=== PATIENT | female | born 1950 | race American Indian/Alaskan Native ===

== ENCOUNTER 2017-05-19 18:38 | Inpatient (IN) | payer OTHER ==
[~2017-05-19] VITALS: Ht 175.3 cm; Wt 160.6 kg
--- NOTE | ~2017-05-19 | H ---
[facility] [place] [address] HISTORY AND PHYSICAL Name: RENATE REED Room #: 313-P ADM IN M.R.#: [id number] Admission: 05/19/17 Attend Phys: Lena Luke Discharge: Date of : 48 Report #: [id number] THIS REPORT FOR: //name// CC: Lena Hollis DATE OF SERVICE: 05/19/2017 ATTENDING PHYSICIAN: Lena Luke MD. PRIMARY CARE PHYSICIAN: Unknown. CHIEF COMPLAINT: Altered mental status. HISTORY OF PRESENT ILLNESS: The patient is a 66-year-old female who [facility] by [facility] daughter because she has not been acting like herself lately. The daughter told the ER that the patient's baseline is normally talkative and spunky, but lately she has been lethargic and she is not always making sense when she talks. Apparently, she has had a fairly recent stroke and had been at for this. She was then at rehab and actually had a fall on 05/16, this was a witnessed fall from standing and she did not have any injury from it, but she was taken back to and admitted and since then it looks like she has been confused. It was not clear if she had hit her head. They stated she had not lost any consciousness. Since this fall, she has been unable to walk and there was mention in the records that she has been agitated and restrained with a CO at one point. She does have a history of hepatic encephalopathy and end-stage liver disease. It was mentioned in the records that it was recommended by her shuttle filler there that palliative care or hospice should be involved. The daughter apparently had declined this stating her mother wants to live, the patient although was telling the staff that she is okay with that. The patient was discharged from today and was supposed to go back to [facility] for further rehab, but the daughter picked her up from the hospital and drove her straight here and did not want her to go back into rehab stating she was still not at her baseline. The daughter is not present at this time, but extensive records from were reviewed. As far as her stroke, it looks like it was a small right thalamic parenchymal hemorrhage. It is not clear if this left her with any residual problems. She also has chronic blood loss anemia from GI bleeding. She had an EGD done in March which did not show any varices, but there was fresh and old blood in the stomach and this was from oozing portal hypertensive gastropathy. Her hemoglobin was 7.7 as of 05/15. According to her medication list, she has been on a PPI. She has chronic kidney disease stage IV and has not been a dialysis candidate presumably because of her liver problems. Her baseline creatinine has been 3.5-4. [address] [address] HISTORY AND PHYSICAL Name: RENATE REED Room #: 313-P [facility] IN M.R.#: [id number] Admission: 05/19/17 Attend Phys: Lena Luke Discharge: Date of : 48 Report #: [id number] The patient is not in any distress at this time. She is denying any pain. She is confused. She thought she was at and she stated the year was "1950," this is actually her birthday. When asked the month and the current president, she also stated the same thing 1950. She could not perform simple addition. She remains alert. PAST MEDICAL HISTORY: Recent CVA, hepatic encephalopathy, panniculitis, arthritis, chronic blood loss anemia, chronic diastolic heart failure, end-stage liver disease, JERNIGAN versus cryptogenic, diabetes, morbid obesity, atrial fibrillation, uterine cancer, hypertension, obesity hypoventilation syndrome, chronic kidney disease stage IV, portal hypotensive gastropathy. PAST SURGICAL HISTORY: Cataract repair, tonsillectomy, bilateral tubal ligation. ALLERGIES: No known drug allergies. HOME MEDICATIONS: Rifaximin 550 mg p.o. b.i.d., midodrine 5 mg p.o. t.i.d., iron 325 mg p.o. b.i.d., tramadol 50 mg q. 6h. p.r.n., lactulose 30 mL t.i.d., potassium 40 mg p.o. b.i.d., zinc 220 mg p.o. daily, Lasix 80 mg p.o. b.i.d., metolazone 2.5 mg p.o. daily, simethicone 80 mg q. 6 hours, Colace 100 mg daily, Carafate 1 mg before meals and at bedtime, Protonix 40 mg p.o. b.i.d., NovoLog insulin 16 units with meals and Levemir 5 units at bedtime and Nystatin powder b.i.d. and vitamin C daily, vitamin D daily, multivitamin daily, fish oil 2000 mg daily and octreotide 100 mcg subQ t.i.d. SOCIAL HISTORY: Per records, the patient is an ex-smoker, having smoked 1 pack of cigarettes per day for about 30 years. She quit in 2010. She does have a history of alcohol abuse and has been sober for 27 years. There was history of drug use, but she has been sober for 27 years. FAMILY HISTORY: Significant for cancer, diabetes, and heart disease. REVIEW OF SYSTEMS: Unable to obtain by patient because of altered mental status, but prior records from were reviewed. PHYSICAL EXAMINATION: GENERAL: The patient is an alert, but confused female, in no acute distress. VITAL SIGNS: Temperature is 36.7, heart rate 77, respirations 20, blood pressure is 120/70, oxygen 98% on room air. HEENT: PERRLA. Sclerae are nonicteric. Oral mucosa is pink and moist. NECK: Supple, no JVD noted. CARDIOVASCULAR: Heart rate is irregular, but no murmurs, rubs or gallops. RESPIRATORY: Breath sounds are clear bilateral upper lobes. She is diminished in both bases. Breathing is nonlabored. [facility] [address] [place] [address] HISTORY AND PHYSICAL Name: RENATE REED Room #: 313-P [facility] IN M.R.#: [id number] Admission: 05/19/17 Attend Phys: Lena Luke Discharge: Date of : 48 Report #: [id number] ABDOMEN: Morbidly obese, but soft, nontender with hypoactive bowel sounds. VASCULAR: 2+ bilateral lower extremity edema. Pedal pulses are 2+. NEUROLOGIC: The patient is alert, but confused as above. She is only oriented to self. She is able to state her birthday, but she became very repetitive and just kept repeating her date as her response to other questions. She will follow some simple commands. She was unable to lift her legs up off the bed, but she is able to wiggle her toes and she was moving her arms above her head to command without any weakness noted. PSYCHIATRIC: She has a very flat affect, but is cooperative. SKIN: Intact. There are no sores, but she does have multiple areas of ecchymosis in her bilateral upper extremities. LABORATORY DATA: WBC 4.8, hemoglobin 8.5, platelets 72. INR 1.6. Sodium 139, potassium 3.3, BUN 69, creatinine 4.0 and glucose 142. AST 51, ALT 25, alkaline phosphatase 158. Troponins negative. Ammonia level 29. BNP 5896. UA showed trace leukocyte esterase, but no wbcs. EKG showed sinus rhythm with some PVCs. CT of the head showed diffuse moderate atrophy and there is mild patchy deep white matter changes suggesting chronic encephalomalacia, there is no acute hemorrhage or infarction and chest x-ray showed moderate right and moderate greater on the left increased lower lobe density, consider atelectasis versus pneumonitis. ASSESSMENT AND PLAN: 1. Altered mental status. It is not clear exactly what the patient's baseline is. Her CT did not show any acute findings. The daughter is not available for questioning at this time. Her ammonia level is normal. We will continue to monitor neuro status and clarify her baseline once family is here. 2. Recent cerebrovascular accident. This could be contributing to her altered mental status. 3. End-stage liver disease due to liver cirrhosis. She does have sequelae of previous hepatic encephalopathy and thrombocytopenia and slight coagulopathy. Apparently, palliative care and/or hospice had been recommended in the past, but the family had refused this. Continue home medications. We will have Dr. Ring with palliative care consulted. 4. Bilateral lower lobe atelectasis versus pneumonitis. She really does not have any signs of infection. She does not have a cough. Her white blood cell count is normal and she is afebrile. Add breathing treatments p.r.n. 5. Chronic kidney disease stage IV-V. The patient has not been on dialysis. Her potassium level is stable. We will follow labs closely. 6. Chronic blood loss anemia with GI bleed secondary to portal gastropathy. She did have an EGD done in March at . Continue with PPI b.i.d. and Carafate and octreotide. 7. Diabetes type 2. Blood sugar is stable. Continue home medications and add Accu-Chek and sliding scale insulin. 8. Hypertension. Blood pressure is stable, continue home medications. 9. Morbid obesity. [facility] [address] [place] [address] HISTORY AND PHYSICAL Name: RENATE REED Room #: 313-P [facility] IN .R.#: [id number] Admission: 05/19/17 Attend Phys: Lena Luke Discharge: Date of : 48 Report #: [id number] 10. Generalized weakness and falls. We will have PT and OT evaluate and see if she is again a candidate for rehab if the family continues to refuse hospice. 11. Atrial fibrillation. She is not on any anticoagulation presumably because of her falls. She is currently rate controlled. Continue to monitor on telemetry and continue home medications. 12. Deep venous thrombosis prophylaxis, place sequential compression devices. We will continue to follow the patient closely throughout the hospitalization and make changes based on clinical status. <ELECTRONICALLY SIGNED> By: CYNTHIA Parker 05/20/171956 0 2 CYNTHIA Parker /nt
--- NOTE | ~2017-05-19 | HC ---
[facility] [place] [address] CONSULTATION Name: RENATE REED Room #: 436-P [facility] IN M.R.#: [id number] Admission: 05/19/17 Attend Phys: Pineda Easley MD Discharge: 05/26/17 Date of : 48 Report #: [id number] THIS REPORT FOR: //name// CC: Pineda Hollis DATE OF SERVICE: 05/25/2017 HISTORY OF PRESENT ILLNESS: The patient is a 66-year-old female with history of end-stage liver disease who was cared for at [facility] She was noted to have possible hepatorenal syndrome. There was consideration for pursuing hospice, although the family was apparently not in favor of this. Upon discharge from , the patient was actually brought in to [facility]. She was noted to have acute mental status changes. She was thought to have toxic encephalopathy consistent with hepatic encephalopathy. She was followed closely by Nephrology. She was noted to have anasarca. Prognosis per the Hr Recruiter was noted to be poor. We are seeing her in Rehabilitation Medicine consultation. PAST MEDICAL HISTORY: Includes history of alcohol abuse, apparently clean 27 years per history. She has morbid obesity, cirrhosis. She has had a prior stroke with some residual left-sided weakness. This is noted to be a right thalamic parenchymal hemorrhage. She has carpal tunnel syndrome involving the right upper extremity. ALLERGIES: No known drug allergies. MEDICATIONS: Please see the full medication listing. FAMILY HISTORY: Noncontributory. HABITS: Prior cigarette abuse for 30 years, quit greater than a year ago. SOCIAL HISTORY: Apparently long-term care resident at [facility]. Other options are being considered at this point. REVIEW OF SYSTEMS: Did not offer any current complaints of chest pain, shortness of breath or abdominal discomfort. She does wear a wrist splint for her carpal tunnel syndrome. PHYSICAL EXAMINATION: GENERAL: A morbidly obese 66-year-old female in no obvious distress. VITAL SIGNS: Last recorded temperature is 97.7, pulse 67, respirations 18, blood pressure 131/59. NEUROLOGIC: The patient is alert. Facies are symmetric. She has functional range of motion of the upper extremities. She has the wrist splint in place. [address] [address] CONSULTATION Name: RENATE REED Room #: [facility].#: [id number] Admission: 05/19/17 Attend Phys: Pineda Easley MD Discharge: 05/26/17 Date of : 48 Report #: [id number] Strength is probably a grade 3+/5. In the lower extremities, there is no focal calf swelling. Functional range of motion with strength grade 3+/5 to 3/5. She has a very large abdominal pannus so it is difficult to test her proximal lower extremities. She has been max assist of 2 for sit to stand. Max assist to roll in bed. Dependent for toileting. ASSESSMENT: A 66-year-old female with the following problem list: 1. Acute mental status changes secondary to hepatic encephalopathy, which appears to be improved. 2. End-stage liver disease. 3. Acute renal insufficiency. 4. Anasarca. 5. Chronic kidney disease with possible hepatorenal syndrome. 6. Diabetes mellitus type 2. PLAN: The patient is at a low functional level. She does not meet criteria for an acute in-hospital 5 [facility] rehabilitation stay. We would agree with snf facility options as you were currently doing. By: [id number] Joselo Solorzano MD /[facility]
--- NOTE | ~2017-05-19 | HC ---
[facility] [place] [address] CONSULTATION Name: RENATE REED Room #: 313-P ADM IN M.R.#: [id number] Admission: 05/19/17 Attend Phys: Pineda Easley MD Discharge: Date of : 48 Report #: [id number] THIS REPORT FOR: //name// CC: Lena Hollis DATE OF SERVICE: 05/21/2017 REASON FOR CONSULTATION: Acute kidney injury. REASON FOR PRESENTATION: The patient's daughter brought her to the hospital because of mental status issues. HISTORY OF PRESENT ILLNESS: This patient is a 66-year-old with past medical history of cirrhosis. She was actually driven from [facility] to [place] after the discharge because family thought that she is not stable enough to go home. I have personally reviewed all of the medical records from [facility]. She also had a previous hospitalization at [facility]. She was admitted to [facility] in the early part of May after a fall. She has an acute kidney injury with her creatinine going up all the way to 3.6. She was evaluated by the kidney team there. Back in March, she had another hospitalization at the [facility] and I was told that she has an element of hepatorenal syndrome due to her end-stage renal disease. Most recent creatinine from [facility] revealed that her creatinine has hovered around anywhere 3.5-3.6. She was supposed to follow up with her shark biologist in . After stabilizing her medical condition, she was discharged home and the patient and the family were advised to pursue hospice and palliative care. However, the daughter did not think that her mom is back to baseline and brought to the emergency room. She was admitted for further evaluation and management. Creatinine on presentation was 4 and is still 4. Her UA was completely unremarkable other than from trace leukocyte esterase. She is way fluid overloaded and has some acute mental status issues. She has an elevated AST. She also has an elevated total bilirubin with a very low albumin of 2.4 and high TSH. I was consulted to manage her acute kidney injury on top of chronic kidney disease. PAST MEDICAL HISTORY: 1. End-stage liver disease. 2. Acute kidney injury. 3. Chronic kidney disease. 4. Remote history of stroke. 5. Gastrointestinal bleeding. 6. Hypertensive gastropathy. 7. Encephalopathy due to end-stage liver disease. 8. Anemia. 9. Panniculitis. [facility] [address] [place] [address] CONSULTATION Name: RENATE REED Room #: 313-P [facility] IN [facility].#: [id number] Admission: 05/19/17 Attend Phys: Pineda Easley MD Discharge: Date of : 48 Report #: [id number] 10. Diabetes mellitus. 11. AFib. 12. Uterine cancer. 13. Hypertension. 14. Morbid obesity. PAST SURGICAL HISTORY: 1. Tonsillectomy. 2. Tubal ligation. MEDICATIONS: 1. Midodrine. 2. Lactulose. 3. Lasix. 4. Metolazone. 5. Rifaximin. 6. Carafate. SOCIAL HISTORY: She is an exsmoker. Sober from alcohol for the last 27 years. No drug abuse. FAMILY HISTORY: Significant for diabetes mellitus and heart disease. REVIEW OF SYSTEMS: Unobtainable given the patient's mental status. PHYSICAL EXAMINATION: GENERAL: She is sleepy, lethargic. VITAL SIGNS: Blood pressure is 128/54. Temperature 36.8. HEAD AND NECK: Jaundiced. CHEST: Decreased air entry bilaterally. CARDIOVASCULAR: No rub detected. ABDOMEN: Soft, distended with ascites. LOWER EXTREMITIES: Massive edema. LABORATORY VALUES: Reviewed. Her laboratory values from here revealed a BUN of 67 and a creatinine of 4. Hemoglobin 7.3. ASSESSMENT, IMPRESSION AND PLAN: 1. Acute kidney injury. 2. Chronic kidney disease. 3. End-stage liver disease. 4. Anemia. 5. Massive edema and fluid overload. 6. Diabetes mellitus. Unfortunately, this is a very fragile situation and there is nothing that we [address] [address] CONSULTATION Name: RENATE REED Room #: 313-P [facility] IN .R.#: [id number] Admission: 05/19/17 Attend Phys: Pineda Easley MD Discharge: Date of : 48 Report #: [id number] could do for her chronic kidney disease. I have explained to the primary team that this patient should be transferred back to the facility to further manage her acute kidney injury and chronic kidney disease. From the renal perspective, I would keep her on the midodrine, octreotide, Lasix for now. I will stop the metolazone. Continue to address her liver issues including treatment for hepatic encephalopathy with the appropriate medications including rifaximin and lactulose. Watch electrolytes. Avoid nephrotoxins. Strict input and output. This is in all likelihood a hepatorenal syndrome, which is not treatable. The only solution for that is ____ measures to bridge her to liver transplant status, which I do not see happening given her overall conditions and comorbid issues. With all of the above-mentioned, I think it is very appropriate to consider palliative and hospice care for this patient as we are getting to the point where we cannot offer her much help. <ELECTRONICALLY SIGNED> By: Ismael Gomez MD 05/23/1725 0733 Ismael Gomez MD /nt
--- NOTE | ~2017-05-19 | EKG ---
[facility] [employer] [place] [address] ELECTROCARDIOGRAM REPORT Name: RENATE REED Room #: 313-P ADM IN M.R.#: [id number] Admission: 05/19/17 Attend Phys: Lena Luke Discharge: Date of : 48 Report #: [id number] THIS REPORT FOR: //name// [facility] ED Test Date: 2017-05-19 Test Time: 19:21:12 Pat Name: RENATE REED Department: Room: [facility] Gender: F Bee Robber: [place] : 1950 Requested By: Lida Crowe Order Number: [id number] MD: Jose Maria Morrissey Measurements Intervals Warren Rate: 74 P: 5 NC: 68 QRS: -44 QRSD: 121 T: 25 QT: 504 QTc: 560 Interpretive Statements Sinus rhythm Multiple premature complexes, vent & supraven Short NC interval Nonspecific IVCD with LAD Consider anterior infarct Baseline wander in lead(s) V5 No previous ECG available for comparison Electronically Signed On 05-20-2017 12:43:40 CDT by Jose Maria Morrissey [email or web address] <ELECTRONICALLY SIGNED> By: Jose Maria Morrissey MD 05/20/17 1243 20 20 Jose Maria Morrissey MD /SARAH
[2017-05-19 18:59] VITALS: BP 120/70
[2017-05-19 19:23] LABS: URINE BILIRUBIN NEGATIVE (Negative); URINE BLOOD NEGATIVE (Negative); URINE COLOR YELLOW; URINE GLUCOSE-RANDOM* NEGATIVE (Negative); URINE KETONES NEGATIVE (Negative); URINE NITRITE NEGATIVE (Negative); URINE PROTEIN (DIPSTICK) NEGATIVE (Negative); URINE UROBILINOGEN 0.2 E.U./dl (0.2-1.0)
[2017-05-19 21:02] LABS: ABSOLUTE NEUTROPHILS 3.3 thou/uL (1.4-8.2); BASOPHILS 0.9 % (0.0-2.0); EOSINOPHILS 5.8 % (0.0-3.0); HEMATOCRIT 24.7 % (37.0-47.0); HEMOGLOBIN 8.5 gm/dL (12.0-15.0); LYMPHOCYTES 15.9 % (24.0-44.0); MCH 33.9 pg (26.0-34.0); MCHC 34.5 g/dL (28.0-37.0); MCV 98.2 fL (80.0-100.0); MONOCYTES 7.5 % (1.0-8.0); PLATELET COUNT 72 thou/uL (150-400); POLYS 69.9 % (36.0-66.0); RBC 2.52 mil/uL (4.20-5.00); RDW 24.2 % (10.5-14.5); WBC 4.8 thou/uL (4.0-11.0)
[2017-05-19 21:05] LABS: MANUAL DIFF NO
[2017-05-19 21:14] LABS: ANION GAP 13 mmol/L (7-16); BUN 69 mg/dL (7-18); CALCIUM 9.1 mg/dL (8.5-10.1); CHLORIDE 103 mmol/L (98-107); CO2 23 mmol/L (21-32); GLUCOSE 142 mg/dL (74-106); POTASSIUM 3.3 mmol/L (3.5-5.1); SODIUM 139 mmol/L (136-145)
[2017-05-19 21:16] LABS: INR 1.6; PROTIME 16.2 Seconds (9.3-11.4)
[2017-05-19 21:23] LABS: ALBUMIN 2.8 g/dL (3.4-5.0); ALKALINE PHOSPHATASE 158 U/L (46-116); SGOT 51 U/L (15-37); SGPT 25 U/L (30-65); TOTAL BILIRUBIN 2.5 mg/dL (<0.1-1.0); TOTAL PROTEIN 8.2 g/dL (6.4-8.2); TROPONIN-I < 0.04 ng/mL (<0.04-0.07)
[2017-05-19 22:58] VITALS: BP 129/78
[2017-05-19 23:00] VITALS: BP 119/52
[2017-05-19 23:30] VITALS: BP 119/52
[2017-05-20] MEDS ORDERED: VITAMINC500 PO (00:49)
[2017-05-20] MEDS ORDERED: VITAMIN D1000 UNI1 PO (00:50)
[2017-05-20] MEDS ORDERED: COLACE 100 MG100 MG PO (00:52)
[2017-05-20] MEDS ORDERED: IRON325 PO (00:52)
[2017-05-20] MEDS ORDERED: SEA-OMEGA 1,001 EACH PO (00:54)
[2017-05-20] MEDS ORDERED: LASIX 40 MG TAB40 M2 PO (00:55)
[2017-05-20] MEDS ORDERED: LACTULOSE10 GM/152 PO (00:56)
[2017-05-20] MEDS ORDERED: METOLAZONE 2.52.5 M1 PO (01:02)
[2017-05-20] MEDS ORDERED: MIDODRINE HCL 55 M1 PO (01:03)
[2017-05-20] MEDS ORDERED: NYAMYC15 GM TOP (01:08)
[2017-05-20] MEDS ORDERED: SANDOSTATI100 MCG/1 INJECTION (01:12)
[2017-05-20] MEDS ORDERED: PROTONIX40 M1 PO (01:12)
[2017-05-20] MEDS ORDERED: KLOR-CON 1010 MEQ PO (01:13)
[2017-05-20] MEDS ORDERED: XIFAXAN550 MG PO (01:14)
[2017-05-20] MEDS ORDERED: GAS RELIEF 8080 MG PO (01:16)
[2017-05-20] MEDS ORDERED: CARAFATE 1 GM TA1 G1 PO (01:17)
[2017-05-20] MEDS ORDERED: ULTRAM 50MG TAB50 MG PO (01:18)
[2017-05-20] MEDS ORDERED: CENTRUM SILVER1 EAC4 PO (01:19)
[2017-05-20] MEDS ORDERED: ZINC-220220 MG PO (01:20)
[2017-05-20] MEDS ORDERED: LEVEMIR SUBQ (01:22)
[2017-05-20] MEDS ORDERED: NOVOLOG FL100 UNIT/M SUBQ (01:23)
[2017-05-20] MEDS ORDERED: LEVEMIR FL100 UNIT/2 SUBQ (01:26)
[2017-05-20] MEDS ORDERED: ENEMEEZ283 MG/5 M RECTAL (01:27)
[2017-05-20] MEDS ORDERED: GENTEAL TEARS1 EACH OPHTHALMIC (01:29)
[2017-05-20 04:25] VITALS: BP 110/44
[2017-05-20 08:20] VITALS: BP 117/52
[2017-05-20 11:12] LABS: CALCIUM 8.8 mg/dL (8.5-10.1); CREATININE 4.1 mg/dL (0.6-1.0); POTASSIUM 3.5 mmol/L (3.5-5.1)
[2017-05-20 15:58] VITALS: BP 105/49
[2017-05-20 19:30] VITALS: BP 134/55
[2017-05-21 04:20] VITALS: BP 128/54
[2017-05-21 04:48] LABS: BASOPHILS 0.7 % (0.0-2.0); EOSINOPHILS 5.5 % (0.0-3.0); HEMATOCRIT 21.8 % (37.0-47.0); HEMOGLOBIN 7.3 gm/dL (12.0-15.0); MCHC 33.4 g/dL (28.0-37.0); MCV 98.6 fL (80.0-100.0); MONOCYTES 7.2 % (1.0-8.0); POLYS 71.6 % (36.0-66.0); RBC 2.21 mil/uL (4.20-5.00); RDW 24.3 % (10.5-14.5); WBC 5.6 thou/uL (4.0-11.0)
[2017-05-21 05:04] LABS: ALBUMIN 2.4 g/dL (3.4-5.0); CALCIUM 8.6 mg/dL (8.5-10.1); TOTAL BILIRUBIN 1.8 mg/dL (<0.1-1.0); TOTAL PROTEIN 6.9 g/dL (6.4-8.2)
[2017-05-21 05:57] LABS: MANUAL DIFF NO
[2017-05-21 08:47] VITALS: BP 115/52
[2017-05-21 10:03] LABS: PLATELET COUNT 54 thou/uL (150-400)
[2017-05-21 16:10] VITALS: BP 117/48
[2017-05-21 21:50] VITALS: BP 127/58
[2017-05-22 05:30] VITALS: BP 118/46
[2017-05-22 06:36] LABS: ABSOLUTE NEUTROPHILS 3.3 thou/uL (1.4-8.2); BASOPHILS 0.8 % (0.0-2.0); EOSINOPHILS 6.7 % (0.0-3.0); HEMATOCRIT 22.4 % (37.0-47.0); HEMOGLOBIN 7.5 gm/dL (12.0-15.0); LYMPHOCYTES 18.9 % (24.0-44.0); MCH 33.2 pg (26.0-34.0); MCHC 33.4 g/dL (28.0-37.0); MCV 99.4 fL (80.0-100.0); MONOCYTES 8.8 % (1.0-8.0); PLATELET COUNT 53 thou/uL (150-400); POLYS 64.8 % (36.0-66.0); RBC 2.26 mil/uL (4.20-5.00); RDW 24.2 % (10.5-14.5); WBC 5.1 thou/uL (4.0-11.0)
[2017-05-22 06:37] LABS: MANUAL DIFF NO
[2017-05-22 06:55] LABS: ALBUMIN 2.4 g/dL (3.4-5.0); CALCIUM 8.7 mg/dL (8.5-10.1); CREATININE 4.3 mg/dL (0.6-1.0); PHOSPHORUS 3.5 mg/dL (2.5-4.9); POTASSIUM 4.6 mmol/L (3.5-5.1)
[2017-05-22 07:19] VITALS: BP 123/54
[2017-05-22 15:14] VITALS: BP 128/53
[2017-05-22 19:48] VITALS: BP 117/45
[2017-05-23 04:03] VITALS: BP 99/40
[2017-05-23 06:49] LABS: HEMATOCRIT 21.3 % (37.0-47.0); HEMOGLOBIN 7.2 gm/dL (12.0-15.0); MCH 33.5 pg (26.0-34.0); MCHC 33.7 g/dL (28.0-37.0); MCV 99.4 fL (80.0-100.0); RBC 2.15 mil/uL (4.20-5.00); RDW 24.1 % (10.5-14.5)
[2017-05-23 07:05] LABS: ALBUMIN 2.3 g/dL (3.4-5.0); CALCIUM 8.5 mg/dL (8.5-10.1); CREATININE 4.3 mg/dL (0.6-1.0); PHOSPHORUS 3.4 mg/dL (2.5-4.9); POTASSIUM 5.1 mmol/L (3.5-5.1)
[2017-05-23 07:33] VITALS: BP 116/39
[2017-05-23 16:17] VITALS: BP 88/41
[2017-05-23 20:20] VITALS: BP 110/62
[2017-05-24 04:04] LABS: HEMATOCRIT 21.4 % (37.0-47.0); HEMOGLOBIN 7.2 gm/dL (12.0-15.0); MCH 33.6 pg (26.0-34.0); MCHC 33.6 g/dL (28.0-37.0); MCV 99.9 fL (80.0-100.0); RBC 2.15 mil/uL (4.20-5.00); WBC 5.3 thou/uL (4.0-11.0)
[2017-05-24 04:17] LABS: ALBUMIN 2.2 g/dL (3.4-5.0); CALCIUM 8.6 mg/dL (8.5-10.1); CREATININE 4.3 mg/dL (0.6-1.0); PHOSPHORUS 3.5 mg/dL (2.5-4.9); POTASSIUM 5.2 mmol/L (3.5-5.1)
[2017-05-24 04:20] VITALS: BP 117/70
[2017-05-24 07:37] VITALS: BP 122/49
[2017-05-24 16:24] VITALS: BP 121/53
[2017-05-24 19:26] VITALS: BP 112/43
[2017-05-25 03:27] VITALS: BP 122/50
[2017-05-25 06:12] LABS: ALBUMIN 2.1 g/dL (3.4-5.0); CALCIUM 8.4 mg/dL (8.5-10.1); CREATININE 4.4 mg/dL (0.6-1.0); PHOSPHORUS 3.9 mg/dL (2.5-4.9)
[2017-05-25 08:00] VITALS: BP 131/59
[2017-05-25] MEDS ORDERED: OCTREOTIDE100 MCG/2 SUBQ (08:23)
[2017-05-25 15:54] VITALS: BP 112/44
[2017-05-25 19:50] VITALS: BP 151/54
[2017-05-26 04:20] VITALS: BP 127/46
[2017-05-26 06:04] LABS: ALBUMIN 2.2 g/dL (3.4-5.0); CALCIUM 8.7 mg/dL (8.5-10.1); CREATININE 4.4 mg/dL (0.6-1.0); POTASSIUM 4.9 mmol/L (3.5-5.1)
[2017-05-26] MEDS ORDERED: MIDODRINE HCL 55 M1 PO (09:58)
[2017-05-26 10:15] VITALS: BP 127/46
== END 2017-05-26 16:35 | disposition hospice, home (50) | DRG 441 ==
LOC: ER 18:38 → 3N 21:33 → EROBS 21:33 → 3N 22:37 → 4S 05-25 18:29
PROVIDERS: Hospitalist; Internal Medicine Endocrinology, Diabetes & Metabolism; Nurse Practitioner Family
DX: K72.90 Hepatic failure, unspecified without coma (principal); G92 Toxic encephalopathy; K76.7 Hepatorenal syndrome; N17.9 Acute kidney failure, unspecified; D68.9 Coagulation defect, unspecified; K76.6 Portal hypertension; I13.0 Hypertensive heart and chronic kidney disease with heart failure and stage 1 through stage 4 chronic kidney disease, or unspecified chronic kidney disease; N18.4 Chronic kidney disease, stage 4 (severe); Z68.43 Body mass index [BMI] 50.0-59.9, adult; K74.60 Unspecified cirrhosis of liver; D69.6 Thrombocytopenia, unspecified; I48.91 Unspecified atrial fibrillation; E66.01 Morbid (severe) obesity due to excess calories; R60.1 Generalized edema; E88.09 Other disorders of plasma-protein metabolism, not elsewhere classified; D50.0 Iron deficiency anemia secondary to blood loss (chronic); K31.89 Other diseases of stomach and duodenum; I50.9 Heart failure, unspecified; E11.22 Type 2 diabetes mellitus with diabetic chronic kidney disease; E80.6 Other disorders of bilirubin metabolism; Z51.5 Encounter for palliative care; Z98.51 Tubal ligation status; Z98.42 Cataract extraction status, left eye; Z98.41 Cataract extraction status, right eye; Z82.49 Family history of ischemic heart disease and other diseases of the circulatory system; Z83.3 Family history of diabetes mellitus; Z80.9 Family history of malignant neoplasm, unspecified; Z87.891 Personal history of nicotine dependence; Z86.73 Personal history of transient ischemic attack (TIA), and cerebral infarction without residual deficits; Z85.42 Personal history of malignant neoplasm of other parts of uterus; Z79.899 Other long term (current) drug therapy
CPT/HCPCS: 10096; 10100; 57087